=== PATIENT | female | born 1965 | race Two or more races ===

== ENCOUNTER 2021-06-25 09:57 | Inpatient (IN) | payer OTHER ==
[~2021-06-25] VITALS: Ht 157.5 cm; Wt 77.8 kg
[~2021-06-25 09:57] MED LIST: ALBU18 IH; AMLO-489 PO; ASPI-241 PO; GEMF600T PO; HYDR25TA4 PO; LEV500T PO; LISI20TA28 PO; METF-370 PO; METR500T PO; PRED-188; SACC250C PO; SIMV-8
[2021-06-25 11:22] LABS: Basophils # (auto) 0.1 10 ^3/uL (0-0.2); Basophils % (auto) 0.6 % (0.0-2.0); Eosinophils # (auto) 0.1 10 ^3/uL (0-0.8); Eosinophils % (auto) 1.4 % (0.0-7.0); Hematocrit 40.8 % (36.0-46.0); Lymphocytes # (auto) 3.6 10 ^3/uL (0.4-5.4); Mean Corpuscular Hemoglobin 30.6 pg (28.0-32.0); Mean Corpuscular Hgb Conc. 34.4 g/dL (32.0-36.0); Mean Corpuscular Volume 88.7 fL (80.0-100.0); Monocytes # (auto) 0.8 10 ^3/uL (0-1.3); Monocytes % (auto) 7.8 % (0.0-12.0); Neutrophils # (auto) 5.2 10 ^3/uL (1.6-8.6); Neutrophils % (auto) 53.2 % (37.0-80.0); Nucleated Red Blood Cells % 0.2 %; Red Blood Cells 4.59 10^6/uL (4.0-5.20); Red Cell Distribution Width 13.5 % (11.8-14.3); White Blood Cell 9.8 10^3/uL (4.4-10.8)
[2021-06-25 11:44] LABS: Albumin 3.8 g/dL (3.4-5.0); Calcium 8.9 mg/dL (8.5-10.1); Magnesium 2.6 mg/dL (1.6-2.6); Potassium 4.2 mmol/L (3.5-5.1)
[2021-06-25 11:50] LABS: Bilirubin, Total 0.4 mg/dL (0.2-1.0); Total Protein 7.6 g/dL (6.4-8.2)
[2021-06-25 12:25] LABS: BUN/Creatinine Ratio 24.7
[2021-06-25] MEDS ORDERED: ONDANSETRON HCL 4 MG/2 ML VIAL IV ONE (16:00)
[2021-06-25] MEDS ORDERED: MORPHINE SULFATE INJECTION 2 MG/ML SYRG IV ONE (16:00)
[2021-06-25] MEDS ORDERED: ALBUTEROL SULF 2.5 MG/0.5ML(0.5%) NEB SOLN NEB PRN (20:15)
[2021-06-25] MEDS ORDERED: NITROGLYCERIN 0.4 MG SL TAB SL PRN (20:15)
[2021-06-25] MEDS ORDERED: ACETAMINOPHEN 500 MG TAB PO PRN (20:15)
[2021-06-25] MEDS ORDERED: hydrALAZINE HCL 20 MG/ML VL IV PRN (20:15)
[2021-06-25] MEDS ORDERED: ONDANSETRON HCL 4 MG/2 ML VIAL IV PRN (20:15)
[2021-06-25] MEDS ORDERED: LORazepam 0.5 MG TAB PO PRN (20:15)
[2021-06-25] MEDS ORDERED: DOCUSATE CALCIUM 240 MG CAP PO PRN (20:15)
[2021-06-25] MEDS ORDERED: DEXTROSE (50%) 50ML SYRG IV PRN (20:15)
[2021-06-25] MEDS ORDERED: MORPHINE SULFATE INJECTION 2 MG/ML SYRG IV PRN ×2 (20:15)
[2021-06-25] MEDS: SODIUM CHLORIDE 0.9% 1,000 ML IV SCH (20:40)
[2021-06-25 21:12] VITALS: BP 131/70
[2021-06-26] MEDS: ACCU-CHEK COMFORT CURVE STRIP VI SCH ×3 (00:25→11:34)
[2021-06-26 05:00] VITALS: BP 111/62
[2021-06-26] MEDS: InsuLIN REG 1unit/0.01ml Soln (100units/ml) SC SCH ×3 (06:00→11:34)
[2021-06-26 06:04] LABS: Basophils # (auto) 0.1 10 ^3/uL (0-0.2); Basophils % (auto) 0.8 % (0.0-2.0); Eosinophils # (auto) 0.2 10 ^3/uL (0-0.8); Eosinophils % (auto) 2.8 % (0.0-7.0); Hematocrit 38.6 % (36.0-46.0); Lymphocytes # (auto) 3.6 10 ^3/uL (0.4-5.4); Lymphocytes % (auto) 45.2 % (10.0-50.0); Mean Corpuscular Hemoglobin 29.9 pg (28.0-32.0); Mean Corpuscular Hgb Conc. 33.7 g/dL (32.0-36.0); Monocytes # (auto) 0.9 10 ^3/uL (0-1.3); Monocytes % (auto) 11.3 % (0.0-12.0); Neutrophils # (auto) 3.2 10 ^3/uL (1.6-8.6); Neutrophils % (auto) 39.9 % (37.0-80.0); Nucleated Red Blood Cells % 0.1 %; Red Blood Cells 4.34 10^6/uL (4.0-5.20); Red Cell Distribution Width 13.7 % (11.8-14.3)
[2021-06-26 06:24] LABS: INR 1.02 (0.9-1.15)
[2021-06-26 06:36] LABS: Albumin 3.2 g/dL (3.4-5.0); BUN/Creatinine Ratio 25.8; Bilirubin, Total 0.3 mg/dL (0.2-1.0); Calcium 8.8 mg/dL (8.5-10.1); Total Protein 6.7 g/dL (6.4-8.2)
[2021-06-26 08:00] VITALS: BP 120/67
[2021-06-26 08:45] VITALS: BP 120/67
[2021-06-26] MEDS: SODIUM CHLORIDE 0.9% 1,000 ML IV SCH (09:35)
[2021-06-26] MEDS ORDERED: ENOXAPARIN SOD 40 MG/0.4 ML SYRINGE SC SCH (10:00)
[2021-06-26] MEDS ORDERED: PANTOPRAZOLE 40 MG TAB PO SCH (10:00)
[2021-06-26] MEDS ORDERED: LISINOPRIL 20 MG TAB PO ONE (11:30)
[2021-06-26] MEDS ORDERED: ASPirin 81 mg TAB PO ONE (11:30)
[2021-06-26 13:00] VITALS: BP 119/67
[2021-06-26 13:31] VITALS: BP 120/67
[2021-06-26] MEDS ORDERED: METOPROLOL TARTRATE 25 MG TAB PO SCH (22:00)
[2021-06-26] MEDS ORDERED: ATORVASTATIN 20 MG TAB PO SCH (22:00)
[2021-06-27] MEDS ORDERED: ASPirin 81 mg TAB PO SCH (10:00)
[2021-06-27] MEDS ORDERED: LISINOPRIL 20 MG TAB PO SCH (10:00)
[2021-07-03] MEDS ORDERED: NAPR375T27 PO (12:12)
[2021-07-03] MEDS ORDERED: ATOR40TA52 PO (12:12)
[2021-07-03] MEDS ORDERED: METO25TA36 PO (12:12)
[2021-07-03] MEDS ORDERED: OMEP-434 PO (12:12)
== END 2021-06-26 14:45 | disposition home or self-care (01) | DRG 303 ==
LOC: ER 09:57 → TELE 20:02 → TELE-CENTR 23:26
PROVIDERS: ADMIT Family Medicine; ATTEND Family Medicine
DX: I25.119 Atherosclerotic heart disease of native coronary artery with unspecified angina pectoris (principal); I24.9 Acute ischemic heart disease, unspecified; E86.0 Dehydration; E78.5 Hyperlipidemia, unspecified; E78.00 Pure hypercholesterolemia, unspecified; E11.65 Type 2 diabetes mellitus with hyperglycemia; I10 Essential (primary) hypertension; M25.521 Pain in right elbow; Z20.822 Contact with and (suspected) exposure to COVID-19; J45.909 Unspecified asthma, uncomplicated; Z80.51 Family history of malignant neoplasm of kidney; Z82.49 Family history of ischemic heart disease and other diseases of the circulatory system; Z83.3 Family history of diabetes mellitus; Z98.51 Tubal ligation status
CPT/HCPCS: 36415; 71045; 73070; 80053; 82962; 83036; 83735; 84443; 84484; 85025; 85610; 87426; 93005; 93306; 96361; 96372; 96374; 96375; G0378; J2405

== ENCOUNTER 2021-07-06 06:42 | Day surgery (SDC) | payer OTHER ==
[~2021-07-06] VITALS: Ht 152.4 cm; Wt 72.6 kg
[~2021-07-06 06:42] MED LIST changes: -AMLO-489 PO; +ATOR40TA52 PO; -LEV500T PO; +METO25TA36 PO; -METR500T PO; +NAPR375T27 PO; +OMEP-434 PO; -PRED-188; -SACC250C PO; -SIMV-8
[2021-07-06] MEDS ORDERED: LIDOCAINE 2%HCL (LOCAL ANESTH.) INJ 20ML MDV ONE (07:32)
[2021-07-06] MEDS ORDERED: ANGIOMAX 250 MG VIAL IV ONE (07:53)
[2021-07-06] MEDS ORDERED: MIDAZOLAM HCL 2MG/2ML 2ml VIAL (1mg/ml) ONE (07:53)
[2021-07-06] MEDS ORDERED: fentaNYL CITRATE 100 MCG/2 ML VL ONE (07:53)
[2021-07-06] MEDS ORDERED: IODIXANOL 320MG/ML 100ML BTL IV ONE ×2 (07:54→08:23)
[2021-07-06] MEDS ORDERED: NITROGLYCERIN 5MG/ML 10ML VIAL IV ONE (07:54)
[2021-07-06] MEDS ORDERED: SODIUM CHL 0.9% 0 ML ONE (07:54)
[2021-07-06] MEDS ORDERED: SODIUM CHL 0.9% 50 ML ONE (07:55)
[2021-07-06] MEDS ORDERED: HEPARIN SODIUM (PORCINE) 5000 UNITS/ML 1ML VIAL ONE (07:59)
[2021-07-06] MEDS ORDERED: VERAPAMIL 2.5MG/ML INJ 2ML VIAL IV ONE (07:59)
[2021-07-06] MEDS ORDERED: HYDROcodone-ACET 5/325MG TAB PO PRN (09:00)
[2021-07-06] MEDS ORDERED: ACETAMINOPHEN 500 MG TAB PO PRN (09:00)
[2021-07-06] MEDS ORDERED: ONDANSETRON HCL 4 MG/2 ML VIAL IV PRN (09:00)
== END 2021-07-06 11:23 | disposition home or self-care (01) ==
LOC: CATH 06:42
PROVIDERS: ATTEND Internal Medicine
DX: I25.118 Atherosclerotic heart disease of native coronary artery with other forms of angina pectoris (principal); I10 Essential (primary) hypertension; E78.5 Hyperlipidemia, unspecified; E11.9 Type 2 diabetes mellitus without complications; Z79.82 Long term (current) use of aspirin; Z79.899 Other long term (current) drug therapy; Z68.31 Body mass index [BMI] 31.0-31.9, adult; Z20.822 Contact with and (suspected) exposure to COVID-19
CPT/HCPCS: 93458; C1769; C1887; C1894; J1644; J2250; J3010; J3490; J7030; Q9967; U0003; 99152; 99153

== ENCOUNTER 2022-02-17 15:19 | Emergency (ER) | payer OTHER ==
[~2022-02-17] VITALS: Ht 154.9 cm; Wt 74.8 kg
[~2022-02-17 15:19] MED LIST changes: +GEMF-19 PO; -GEMF600T PO; -HYDR25TA4 PO; -LISI20TA28 PO; -METO25TA36 PO; -NAPR375T27 PO; -OMEP-434 PO; +SACU1TAB7 PO
[2022-02-17 16:23] LABS: Basophils # (auto) 0.1 10 ^3/uL (0-0.2); Basophils % (auto) 0.7 % (0.0-2.0); Eosinophils # (auto) 0.2 10 ^3/uL (0-0.8); Eosinophils % (auto) 1.7 % (0.0-7.0); Hematocrit 41.4 % (36.0-46.0); Hemoglobin 13.7 g/dL (12.2-16.2); Lymphocytes # (auto) 3.4 10 ^3/uL (0.4-5.4); Monocytes # (auto) 0.9 10 ^3/uL (0-1.3); Monocytes % (auto) 9.8 % (0.0-12.0); Neutrophils # (auto) 4.5 10 ^3/uL (1.6-8.6); Neutrophils % (auto) 49.8 % (37.0-80.0); Nucleated Red Blood Cells % 0.2 %; Red Blood Cells 4.71 10^6/uL (4.0-5.20); Red Cell Distribution Width 13.1 % (11.8-14.3)
[2022-02-17 16:32] LABS: Albumin 4.2 g/dL (3.4-5.0); Calcium 9.2 mg/dL (8.5-10.1); Potassium 4.2 mmol/L (3.5-5.1)
[2022-02-17 16:34] LABS: Urine Bacteria NONE SEEN /hpf (None Seen); Urine Blood TRACE /uL (Negative); Urine Hyaline Cast FEW /lpf (0 - 2); Urine Specific Gravity 1.008 (1.001-1.035); Urine WBC 3 /hpf (0 - 5)
[2022-02-17 16:36] LABS: Bilirubin, Total 0.2 mg/dL (0.2-1.0); Total Protein 8.5 g/dL (6.4-8.2)
[2022-02-17] MEDS ORDERED: KETOROLAC TROMETH 60MG/2ML VIAL IM ONE (18:00)
[2022-02-17] MEDS ORDERED: DEX4T PO ×2 (18:58→19:15)
[2022-02-17] MEDS ORDERED: TRAM50TA2 PO ×2 (18:58→19:05)
[2022-02-17 19:49] VITALS: BP 168/88
== END 2022-02-17 19:45 | disposition home or self-care (01) ==
LOC: ER 15:19
DX: M25.512 Pain in left shoulder (principal); M75.32 Calcific tendinitis of left shoulder; E11.9 Type 2 diabetes mellitus without complications; E78.5 Hyperlipidemia, unspecified; I10 Essential (primary) hypertension; J45.909 Unspecified asthma, uncomplicated; Z86.73 Personal history of transient ischemic attack (TIA), and cerebral infarction without residual deficits; Z98.51 Tubal ligation status
CPT/HCPCS: 36415; 73030; 80053; 81001; 85025; 93005; 96372; 99285; J1885